=== PATIENT | female | born 1980 | race Two or more races ===

== ENCOUNTER 2024-08-29 15:05 | Emergency (ER) | payer OTHER ==
[2024-08-29 19:54] LABS: Rapid Influenza A Negative (Negative); Rapid Influenza B Negative (Negative)
[2024-08-29 19:55] LABS: COVID19 ANTIGEN SOFIA FIA NEGATIVE (NEGATIVE)
[2024-08-29] MEDS ORDERED: MONT10TA23 PO (20:07)
[2024-08-29] MEDS ORDERED: ALBU108A5 IN (20:07)
[2024-08-29] MEDS ORDERED: PROM1SOL4 PO (20:07)
[2024-08-29 21:08] VITALS: BP 118/78; TEMP 97.7
[2024-08-29 21:09] VITALS: PULSE 105; RESP 18; O2SAT 100
== END 2024-08-29 21:14 | disposition home or self-care (01) ==
LOC: ER 15:05
DX: J06.9 Acute upper respiratory infection, unspecified (principal); R50.9 Fever, unspecified; Z20.822 Contact with and (suspected) exposure to COVID-19
CPT/HCPCS: 36415; 71045; 87426; 87804